=== PATIENT | female | born 1965 | race Caucasian/White ===

== ENCOUNTER → 2016-09-06 | Outpatient (CLI) | payer BC ==
[~2016-09-06] MED LIST: PERC5TAB6 PO
[2016-09-06 13:48] LABS: BASO % 0.3 % (0.0-1.0); EOS # 0.2 K/mm3 (0.0-0.50); EOS % 2.6 % (0.0-3.0); LARGE UNSTAINED CELL # 0.1 K/mm3 (0.0-0.4); LARGE UNSTAINED CELL % 1.6 % (0.0-4.0); LYMPH # 2.4 K/mm3 (1.5-4.5); LYMPH % 27.4 % (24.0-44.0); MEAN CORPUSCULAR HGB CONC 30.2 g/dl (32.0-36.5); MEAN CORPUSCULAR VOLUME 79.5 fl (80.0-96.0); MONO # 0.5 K/mm3 (0.0-0.8); MONO % 5.3 % (0.0-5.0); NEUTROPHILS # 5.5 K/mm3 (1.8-7.7); NEUTROPHILS % 62.9 % (36.0-66.0); PLATELET COUNT, AUTOMATED 402 k/mm3 (150-450); RED CELL DISTRIBUTION WIDTH 15.6 % (11.5-14.5); WHITE BLOOD COUNT 8.8 K/mm3 (4.0-10.0)
[2016-09-06 14:27] LABS: ALBUMIN 3.6 GM/DL (3.2-5.2); ALBUMIN/GLOBULIN RATIO 1.03 (1.00-1.93); ALKALINE PHOSPHATASE 89 U/L (45-117); ALT/SGPT 21 U/L (12-78); ANION GAP 6 MEQ/L (8-16); AST/SGOT 12 U/L (15-37); BILIRUBIN,TOTAL 0.3 MG/DL (0.2-1.0); BLOOD UREA NITROGEN 16 MG/DL (7-18); CALCIUM LEVEL 9.1 MG/DL (8.5-10.1); CARBON DIOXIDE LEVEL 28 MEQ/L (21-32); CHLORIDE LEVEL 106 MEQ/L (98-107); CHOLESTEROL LEVEL 159 MG/DL (<200); CREATININE FOR GFR 0.79 MG/DL (0.55-1.02); GLOMERULAR FILTRATION RATE > 60.0 (>51); GLUCOSE, FASTING 102 MG/DL (70-105); POTASSIUM SERUM 4.7 MEQ/L (3.5-5.1); SODIUM LEVEL 140 MEQ/L (136-145); TOTAL PROTEIN 7.1 GM/DL (6.4-8.2); TRIGLYCERIDES LEVEL 161 MG/DL (<150)
== END ==
LOC: M SMT 10:35
PROVIDERS: ATTEND Family Medicine
DX: E11.9 Type 2 diabetes mellitus without complications (principal); E78.2 Mixed hyperlipidemia

== ENCOUNTER → 2016-12-06 | Outpatient (CLI) | payer BC ==
[~2016-12-06] MED LIST changes: +PERC5TAB12 PO; -PERC5TAB6 PO
[2016-12-06 14:21] LABS: ANION GAP 9 MEQ/L (8-16); BLOOD UREA NITROGEN 13 MG/DL (7-18); CALCIUM LEVEL 9.7 MG/DL (8.5-10.1); CARBON DIOXIDE LEVEL 28 MEQ/L (21-32); CHLORIDE LEVEL 105 MEQ/L (98-107); CREATININE FOR GFR 0.84 MG/DL (0.55-1.02); GLOMERULAR FILTRATION RATE > 60.0 (>51); GLUCOSE, FASTING 104 MG/DL (70-105); POTASSIUM SERUM 4.8 MEQ/L (3.5-5.1); SODIUM LEVEL 142 MEQ/L (136-145)
== END ==
LOC: M SMT 10:28
PROVIDERS: ATTEND Physician Assistant
DX: E11.9 Type 2 diabetes mellitus without complications (principal)

== ENCOUNTER → 2017-05-21 | Outpatient (CLI) | payer BC ==
--- NOTE | 2017-05-21 19:39 | REP ---
Clinical: Postmenopausal bleeding . Technique: Transabdominal pelvic ultrasound followed by transvaginal examination for better evaluation of the endometrium and adnexa with color Doppler evaluation of the ovaries. Findings: Bladder is unremarkable and measures 5.4 x 5.6 x 7.3 cm . Heterogeneous myomatous uterus measures 13.5 x 6.7 x 6.8 cm . The endometrial complex measures 7.1 mm thickness. Fundal fibroid measures 4.3 x 3.9 x 4.1 cm and has a submucosal component; right anterior intramural/submucosal fibroid measures 2.3 x 2.3 x 1.4 cm; posterior intramural fibroid measures 2.4 x 3.4 x 2.1 cm; right posterior intramural fibroid measures 1.4 x 1.2 x 1.2 cm. Bilateral ovaries are normal in appearance. Right ovary measures 1.9 x 3.5 x 1.6 cm. Left ovary measures 2.4 x 1.5 x 1.8 cm. Small amount of free fluid in the pelvis nonspecific. . Impression: 1. Heterogeneous enlarged myomatous uterus. Signed by Del Shin MD 05/21/2017 04:30 P
== END ==
LOC: M RAD 16:07
PROVIDERS: ATTEND Internal Medicine
DX: Z00.01 Encounter for general adult medical examination with abnormal findings (principal); D25.9 Leiomyoma of uterus, unspecified

== ENCOUNTER → 2017-06-18 | Outpatient (REF) | payer BC | LOC: M LAB REF 13:23 | DX: N95.0 Postmenopausal bleeding (principal) | CPT/HCPCS: 88304 ==

== ENCOUNTER → 2017-06-30 | Outpatient (CLI) | payer BC ==
[2017-06-30 20:13] LABS: ALBUMIN 3.9 GM/DL (3.2-5.2); ALKALINE PHOSPHATASE 96 U/L (45-117); ALT/SGPT 24 U/L (12-78); ANION GAP 10 MEQ/L (8-16); AST/SGOT 17 U/L (7-37); BILIRUBIN,TOTAL 0.5 MG/DL (0.2-1.0); BLOOD UREA NITROGEN 17 MG/DL (7-18); CALCIUM LEVEL 9.3 MG/DL (8.5-10.1); CARBON DIOXIDE LEVEL 28 MEQ/L (21-32); CHLORIDE LEVEL 105 MEQ/L (98-107); CREATININE FOR GFR 0.91 MG/DL (0.55-1.30); GLOMERULAR FILTRATION RATE > 60.0 (>51); GLUCOSE, FASTING 103 MG/DL (70-100); POTASSIUM SERUM 4.8 MEQ/L (3.5-5.1); SODIUM LEVEL 143 MEQ/L (136-145); TOTAL PROTEIN 7.8 GM/DL (6.4-8.2)
[2017-06-30 20:20] LABS: ESTIMATED AVERAGE GLUCOSE 131 MG/DL (60-110); HEMOGLOBIN A1c 6.2 %
== END ==
LOC: M SMT 11:30
DX: E11.9 Type 2 diabetes mellitus without complications (principal)
CPT/HCPCS: 80053

== ENCOUNTER → 2018-03-30 | Outpatient (CLI) | payer BC ==
[2018-03-30 17:21] LABS: BASO % 0.4 % (0.0-1.0); EOS # 0.3 10^3/uL (0.0-0.50); EOS % 3.3 % (0.0-3.0); HEMATOCRIT 42.5 % (36.0-47.0); HEMOGLOBIN 13.3 g/dl (12.0-15.5); IMMATURE GRANULOCYTE % 0.3 % (0-3.0); LYMPH # 2.8 10^3/uL (1.5-4.5); LYMPH % 30.9 % (24.0-44.0); MEAN CORPUSCULAR HEMOGLOBIN 29.4 pg (27.0-33.0); MEAN CORPUSCULAR HGB CONC 31.3 g/dl (32.0-36.5); MEAN CORPUSCULAR VOLUME 93.8 fl (80.0-96.0); MONO # 0.6 10^3/uL (0.0-0.8); MONO % 7.1 % (0.0-5.0); NEUTROPHILS # 5.2 10^3/uL (1.8-7.7); PLATELET COUNT, AUTOMATED 361 10^3/uL (150-450); RED BLOOD COUNT 4.53 10^6/uL (4.00-5.40); RED CELL DISTRIBUTION WIDTH 13.3 % (11.5-14.5); WHITE BLOOD COUNT 8.9 10^3/uL (4.0-10.0)
[2018-03-30 17:34] LABS: ALBUMIN 3.9 GM/DL (3.2-5.2); ALBUMIN/GLOBULIN RATIO 1.08 (1.00-1.93); ALKALINE PHOSPHATASE 106 U/L (45-117); ALT/SGPT 27 U/L (12-78); ANION GAP 6 MEQ/L (8-16); AST/SGOT 13 U/L (7-37); BILIRUBIN,TOTAL 0.4 MG/DL (0.2-1.0); BLOOD UREA NITROGEN 15 MG/DL (7-18); CALCIUM LEVEL 9.7 MG/DL (8.5-10.1); CARBON DIOXIDE LEVEL 30 MEQ/L (21-32); CHLORIDE LEVEL 104 MEQ/L (98-107); GLOMERULAR FILTRATION RATE > 60.0 (>51); GLUCOSE, FASTING 93 MG/DL (70-100); POTASSIUM SERUM 4.4 MEQ/L (3.5-5.1); SODIUM LEVEL 140 MEQ/L (136-145); TOTAL PROTEIN 7.5 GM/DL (6.4-8.2)
[2018-03-30 17:49] LABS: ESTIMATED AVERAGE GLUCOSE 128 MG/DL (60-110); HEMOGLOBIN A1c 6.1 %
== END ==
LOC: M SMT 10:59
DX: E11.9 Type 2 diabetes mellitus without complications (principal)
CPT/HCPCS: 80053

== ENCOUNTER → 2018-07-07 | Outpatient (CLI) | payer BC ==
[2018-07-07 14:56] LABS: ALBUMIN 4.1 GM/DL (3.2-5.2); BILIRUBIN,TOTAL 0.5 MG/DL (0.2-1.0); CALCIUM LEVEL 9.5 MG/DL (8.5-10.1); CREATININE FOR GFR 1.08 MG/DL (0.55-1.30); GLOMERULAR FILTRATION RATE 56.5 (>51); HEMOGLOBIN A1c 6.3 %; POTASSIUM SERUM 4.4 MEQ/L (3.5-5.1); TOTAL PROTEIN 7.7 GM/DL (6.4-8.2)
== END ==
LOC: M SMT 08:59
PROVIDERS: ATTEND Family Medicine
DX: I10 Essential (primary) hypertension (principal)

== ENCOUNTER 2018-07-22 08:37 | Day surgery (SDC) | payer BC ==
[~2018-07-22] VITALS: Ht 162.6 cm; Wt 111.6 kg
[~2018-07-22 08:37] MED LIST changes: +NS 1,000 ML IV ONE
[2018-07-22] MEDS ORDERED: PROPOFOL 200 MG/20 ML VIAL As Ordered ONE (09:29)
[2018-07-22] MEDS ORDERED: LIDOCAINE 2% INJ 100 MG/5 ML SDV (FOR ANES.) As Ordered ONE (09:30)
[2018-07-22] MEDS ORDERED: LISI10TA4 PO (10:20)
[2018-07-22] MEDS ORDERED: ATOR40TA75 PO (10:20)
[2018-07-22] MEDS ORDERED: BISO5TAB2 PO (10:20)
[2018-07-22] MEDS ORDERED: DEBL1TAB PO (10:20)
[2018-07-22] MEDS ORDERED: METF10004 PO (10:20)
[2018-07-22] MEDS ORDERED: AMLO-140 PO (10:20)
[2018-07-22] MEDS ORDERED: TRUL10IN SC (10:20)
[2018-07-22] MEDS ORDERED: ASPI1TAB PO (10:20)
--- NOTE | 2018-07-22 10:58 | ROOR ---
Patient Name: Raquel Botello Procedure Date: 07/22/2018 10:37 AM Date of : 1965 Age: 53 Room: [facility] Gender: Female Note Status: Finalized Procedure: Colonoscopy Indications: Screening for colorectal malignant neoplasm Providers: Jose Simon DO Referring MD: Araceli BARAJAS DO Requesting Provider: Medicines: Propofol per Anesthesia Complications: No immediate complications. Procedure: Pre-Anesthesia Assessment: - Prior to the procedure, a History and Physical was performed, and patient medications and allergies were reviewed. The patient is competent. The risks and benefits of the procedure and the sedation options and risks were discussed with the patient. All questions were answered and informed consent was obtained. Patient identification and proposed procedure were verified by the physician, the nurse, the anesthesiologist and the remediation technician in the endoscopy suite. Mental Status Examination: alert and oriented. Airway Examination: normal oropharyngeal airway and neck mobility. Respiratory Examination: clear to auscultation. CV Examination: normal. Prophylactic Antibiotics: The patient does not require prophylactic antibiotics. Prior Anticoagulants: The patient has taken no previous anticoagulant or antiplatelet agents. ASA Grade Assessment: II - A patient with mild systemic disease. After reviewing the risks and benefits, the patient was deemed in satisfactory condition to undergo the procedure. The anesthesia plan was to use monitored anesthesia care (MAC). Immediately prior to administration of medications, the patient was re-assessed for adequacy to receive sedatives. The heart rate, respiratory rate, oxygen saturations, blood pressure, adequacy of pulmonary ventilation, and response to care were monitored throughout the procedure. The physical status of the patient was re-assessed after the procedure. The Colonoscope was introduced through the anus and advanced to the cecum, identified by appendiceal orifice and ileocecal valve. The colonoscopy was performed without difficulty. The patient tolerated the procedure well. Findings: The perianal exam findings include non-thrombosed internal hemorrhoids and internal hemorrhoids (Grade I). A single small-mouthed diverticulum was found in the sigmoid colon. The exam was otherwise without abnormality on direct and retroflexion views. Impression: - Non-thrombosed internal hemorrhoids and internal hemorrhoids (Grade I) found on perianal exam. - Diverticulosis in the sigmoid colon. - The examination was otherwise normal on direct and retroflexion views. - No specimens collected. Recommendation: - Patient has a contact number available for emergencies. The signs and symptoms of potential delayed complications were discussed with the patient. Return to normal activities tomorrow. Written discharge instructions were provided to the patient. - Repeat colonoscopy in 10 years for screening purposes. - Return to my office PRN. Jose Simon DO 07/22/2018 10:58:20 AM This report has been signed electronically. Number of Addenda: 0 Note Initiated On: 07/22/2018 10:37 AM Estimated Blood Loss: Estimated blood loss was minimal.
[2018-07-22 11:25] VITALS: BP 141/87
== END 2018-07-22 11:37 | disposition home or self-care (01) ==
LOC: M OPP 08:37
PROVIDERS: ATTEND Surgery
DX: Z12.11 Encounter for screening for malignant neoplasm of colon (principal); K64.0 First degree hemorrhoids; K57.30 Diverticulosis of large intestine without perforation or abscess without bleeding; Z87.891 Personal history of nicotine dependence; Z79.899 Other long term (current) drug therapy

== ENCOUNTER → 2018-09-24 | Outpatient (REF) | payer BC ==
[~2018-09-24] MED LIST changes: +AMLO-140 PO; +ASPI81TA26 PO; +ATOR40TA75 PO; +BISO5TAB2 PO; +DEBL1TAB PO; +LISI10TA4 PO; +METF10004 PO; -NS 1,000 ML IV ONE; +TRUL10IN SC
[2018-09-29 14:13] LABS: HPV HYBRID CAPTURE II Negative (Negative)
== END ==
LOC: M LAB REF 11:00
PROVIDERS: ATTEND Specialist
DX: Z12.4 Encounter for screening for malignant neoplasm of cervix (principal)
CPT/HCPCS: 87624; G0123

== ENCOUNTER → 2018-09-24 | Outpatient (CLI) | payer BC | LOC: M SMT 11:42 | PROVIDERS: ATTEND Specialist | DX: Z13.79 Encounter for other screening for genetic and chromosomal anomalies (principal); Z53.9 Procedure and treatment not carried out, unspecified reason ==

== ENCOUNTER → 2018-09-24 | Outpatient (CLI) | payer BC ==
[2018-09-24 10:42] LABS: BASO % 0.4 % (0.0-1.0); EOS # 0.2 10^3/uL (0.0-0.50); EOS % 1.7 % (0.0-3.0); HEMATOCRIT 41.9 % (36.0-47.0); HEMOGLOBIN 13.7 g/dl (12.0-15.5); LYMPH # 3.1 10^3/uL (1.5-4.5); MEAN CORPUSCULAR HEMOGLOBIN 29.7 pg (27.0-33.0); MEAN CORPUSCULAR HGB CONC 32.7 g/dl (32.0-36.5); MEAN CORPUSCULAR VOLUME 90.9 fl (80.0-96.0); MONO # 0.8 10^3/uL (0.0-0.8); MONO % 7.5 % (0.0-5.0); NEUTROPHILS # 6.2 10^3/uL (1.8-7.7); NEUTROPHILS % 60.1 % (36.0-66.0); PLATELET COUNT, AUTOMATED 315 10^3/uL (150-450); RED BLOOD COUNT 4.61 10^6/uL (4.00-5.40); WHITE BLOOD COUNT 10.3 10^3/uL (4.0-10.0)
[2018-09-24 11:04] LABS: ALBUMIN 3.9 GM/DL (3.2-5.2); ALT/SGPT 37 U/L (12-78); BILIRUBIN,TOTAL 0.3 MG/DL (0.2-1.0); BLOOD UREA NITROGEN 20 MG/DL (7-18); CALCIUM LEVEL 9.6 MG/DL (8.5-10.1); CARBON DIOXIDE LEVEL 27 MEQ/L (21-32); CHLORIDE LEVEL 106 MEQ/L (98-107); CHOLESTEROL LEVEL 145 MG/DL (<200); CHOLESTEROL RISK RATIO 3.295 (<5); CREATININE FOR GFR 0.84 MG/DL (0.55-1.30); GLOMERULAR FILTRATION RATE > 60.0 (>51); GLUCOSE, FASTING 99 MG/DL (70-100); HDL CHOLESTEROL 44 MG/DL (>40); LDL CHOLESTEROL 61 MG/DL (<100); NON-HDL-C 101 MG/DL; POTASSIUM SERUM 3.9 MEQ/L (3.5-5.1); SODIUM LEVEL 140 MEQ/L (136-145); TOTAL PROTEIN 7.4 GM/DL (6.4-8.2); TRIGLYCERIDES LEVEL 202 MG/DL (<150)
[2018-09-24 11:10] LABS: HEMOGLOBIN A1c 6.2 %
[2018-09-24 11:37] LABS: MALB URINE SIEMENS 37.8 MG/L; MAU/CREAT RATIO 21.9 MCG/MG (0.0-30.0)
== END ==
LOC: M SMT 08:32
PROVIDERS: ATTEND Family Medicine
DX: E11.9 Type 2 diabetes mellitus without complications (principal); E78.2 Mixed hyperlipidemia

== ENCOUNTER → 2019-01-07 | Outpatient (CLI) | payer BC ==
[2019-01-07 15:12] LABS: BLOOD UREA NITROGEN 16 MG/DL (7-18); CALCIUM LEVEL 9.4 MG/DL (8.5-10.1); CARBON DIOXIDE LEVEL 25 MEQ/L (21-32); CHLORIDE LEVEL 108 MEQ/L (98-107); CREATININE FOR GFR 0.89 MG/DL (0.55-1.30); GLOMERULAR FILTRATION RATE > 60.0 (>51); GLUCOSE, FASTING 97 MG/DL (70-100); POTASSIUM SERUM 4.3 MEQ/L (3.5-5.1); SODIUM LEVEL 143 MEQ/L (136-145)
[2019-01-07 15:44] LABS: HEMOGLOBIN A1c 6.1 %
== END ==
LOC: M SMT 09:27
PROVIDERS: ATTEND Physician Assistant
DX: Z00.01 Encounter for general adult medical examination with abnormal findings (principal); E11.9 Type 2 diabetes mellitus without complications

== ENCOUNTER 2019-03-24 13:58 | Day surgery (SDC) | payer BC ==
[~2019-03-24] VITALS: Ht 162.6 cm; Wt 118.8 kg
[~2019-03-24 13:58] MED LIST changes: +LR 1,000 ML IV ONE
[2019-03-24] MEDS ORDERED: MIDAZOLAM INJ 2 MG/2 ML VIAL (J2250) As Ordered ONE (14:34)
[2019-03-24] MEDS ORDERED: fentaNYL 100 MCG/2 ML INJECTION (J3010) As Ordered ONE (14:34)
[2019-03-24 14:35] LABS: HEMATOCRIT 44.3 % (36.0-47.0); HEMOGLOBIN 14.8 g/dl (12.0-15.5); MEAN CORPUSCULAR HGB CONC 33.4 g/dl (32.0-36.5); MEAN CORPUSCULAR VOLUME 92.7 fl (80.0-96.0); PLATELET COUNT, AUTOMATED 339 10^3/uL (150-450); RED BLOOD COUNT 4.78 10^6/uL (4.00-5.40); WHITE BLOOD COUNT 9.1 10^3/uL (4.0-10.0)
[2019-03-24] MEDS ORDERED: PROPOFOL 200 MG/20 ML VIAL As Ordered ONE ×2 (14:35→16:51)
[2019-03-24] MEDS ORDERED: LIDOCAINE 2% INJ 100 MG/5 ML SDV (FOR ANES.) As Ordered ONE (14:35)
[2019-03-24] MEDS ORDERED: dexameTHASONE 4 MG/ML 1ML VIAL (J1100) As Ordered ONE (14:35)
[2019-03-24] MEDS ORDERED: ONDANSETRON 4MG/2ML VIAL (J2405) As Ordered ONE (14:35)
[2019-03-24] MEDS ORDERED: PHENYLephrine HCL 500 MCG/5 ML (100MCG/ML) SYRINGE (J2370) As Ordered ONE (14:56)
[2019-03-24] MEDS ORDERED: BUPIVACAINE HCL 0.25% 30 ML VIAL As Ordered ONE (15:51)
[2019-03-24] MEDS ORDERED: ESTROGENS VAGINAL CREAM 30GM As Ordered ONE (15:51)
--- NOTE | 2019-03-24 16:32 | ECGEPIP ---
[facility] Test Date: 2019-03-24 Pat Name: LILIAM TREJO Department: Room: - Gender: Female It Service Continuity Supervisor: [facility] : 1965 Requested By: Freddie Diop Order Number: [id number] Reading MD: Erick Regalado Measurements Intervals [place] Rate: 63 P: 36 AR: 214 QRS: 33 QRSD: 83 T: 62 QT: 425 QTc: 437 Interpretive Statements SINUS RHYTHM WITH FIRST DEGREE AV BLOCK Electronically Signed on 03-24-2019 16:32:19 EDT by Erick Regalado
[2019-03-24] MEDS ORDERED: CHLOROPROCAINE PRES. FREE 3% INJ 20 ML VIAL (J2400) As Ordered ONE (16:34)
[2019-03-24] MEDS ORDERED: fentaNYL 100 MCG/2 ML INJECTION (J3010) IV PRN (17:45)
[2019-03-24] MEDS ORDERED: PERCOCET 5MG/325MG TAB PO PRN (17:45)
[2019-03-24] MEDS ORDERED: METOCLOPRAMIDE INJ 10MG/2ML VIAL (J2765) IV PRN (17:45)
[2019-03-24] MEDS ORDERED: LR 1,000 ML IV SCH ×2 (17:45)
[2019-03-24] MEDS ORDERED: PERCOCET 5MG/325MG TAB PO ONE (17:45)
[2019-03-24] MEDS ORDERED: ONDANSETRON 4MG/2ML VIAL (J2405) IV PRN (17:45)
[2019-03-24 19:20] VITALS: BP 143/74
--- NOTE | 2019-03-25 08:07 | RO ---
DATE OF PROCEDURE: 03/24/2019 PREPROCEDURE DIAGNOSIS: Numerous sebaceous cysts of the vulva. POSTPROCEDURE DIAGNOSIS: Numerous sebaceous cysts of the vulva. PROCEDURE: Extensive excision of sebaceous cysts of the vulva. SURGEON: Dr. Bennett Saucedo [employer]NA[employer]ETING: ANESTHESIA: Spinal. ESTIMATED BLOOD LOSS: 50 mL. FINDINGS: Numerous extensive sebaceous cysts involving the labia majora bilaterally, otherwise normal labia minora, normal vagina. DESCRIPTION OF PROCEDURE: The patient was taken to the operating room where spinal anesthesia was induced. She was prepped and draped in sterile fashion in the dorsal lithotomy position. The bladder was emptied with a catheter. Scalpel #15 blade was used to excise sebaceous cysts bilaterally. I estimate that approximately 100 cysts were excised. The patient was given a total of 10 mL of 0.25% Marcaine solution injected bilaterally to the base of the labia. Good hemostasis was noted. At the end of the procedure, there were still some sebaceous cysts left, however, the situation was much improved. It was made clear to the patient ahead of time that it would not be possible to remove all the cysts at present. Sponge and instrument counts were correct.
== END 2019-03-24 19:25 | disposition home or self-care (01) ==
LOC: M SDC 13:58
PROVIDERS: ATTEND Specialist
DX: N90.7 Vulvar cyst (principal); I44.0 Atrioventricular block, first degree; I10 Essential (primary) hypertension; E11.9 Type 2 diabetes mellitus without complications; E66.01 Morbid (severe) obesity due to excess calories; G47.33 Obstructive sleep apnea (adult) (pediatric); F17.210 Nicotine dependence, cigarettes, uncomplicated; Z79.84 Long term (current) use of oral hypoglycemic drugs; Z79.899 Other long term (current) drug therapy
CPT/HCPCS: 11420; 36415; 85027; 88304; 93005; J1100; J2250; J2400; J2405; J3010

== ENCOUNTER → 2019-04-14 | Outpatient (CLI) | payer BC ==
[~2019-04-14] MED LIST changes: -LR 1,000 ML IV ONE
[2019-04-14 14:15] LABS: BASO % 0.4 % (0.0-1.0); EOS # 0.1 10^3/uL (0.0-0.5); EOS % 1.3 % (0.0-3.0); HEMATOCRIT 43.7 % (36.0-47.0); HEMOGLOBIN 13.6 g/dl (12.0-15.5); LYMPH # 2.8 10^3/uL (1.5-5.0); LYMPH % 27.2 % (24.0-44.0); MEAN CORPUSCULAR HEMOGLOBIN 29.4 pg (27.0-33.0); MEAN CORPUSCULAR HGB CONC 31.1 g/dl (32.0-36.5); MEAN CORPUSCULAR VOLUME 94.4 fl (80.0-96.0); MONO # 0.7 10^3/uL (0.0-0.8); NEUTROPHILS # 6.5 10^3/uL (1.5-8.5); NEUTROPHILS % 63.7 % (36.0-66.0); PLATELET COUNT, AUTOMATED 298 10^3/uL (150-450); RED BLOOD COUNT 4.63 10^6/uL (4.00-5.40); WHITE BLOOD COUNT 10.2 10^3/uL (4.0-10.0)
[2019-04-14 14:17] LABS: ALBUMIN 3.8 GM/DL (3.2-5.2); BILIRUBIN,TOTAL 0.6 MG/DL (0.2-1.0); CALCIUM LEVEL 9.3 MG/DL (8.5-10.1); CREATININE FOR GFR 1.08 MG/DL (0.55-1.30); GLOMERULAR FILTRATION RATE 56.3 (>51); POTASSIUM SERUM 4.5 MEQ/L (3.5-5.1); TOTAL PROTEIN 7.4 GM/DL (6.4-8.2)
[2019-04-14 14:38] LABS: HEMOGLOBIN A1c 6.3 %
== END ==
LOC: M SMT 09:44
PROVIDERS: ATTEND Family Medicine
DX: I10 Essential (primary) hypertension (principal)

== ENCOUNTER → 2020-03-30 | Outpatient (REF) | payer BC ==
[~2020-03-30] MED LIST changes: +AMLO1TAB25 PO; +MELO15TA28 PO; +TRUL0.5I SQ
== END ==
LOC: M LAB REF 16:54
PROVIDERS: ATTEND Physician Assistant
DX: Z13.29 Encounter for screening for other suspected endocrine disorder (principal)

== ENCOUNTER → 2020-04-02 | Outpatient (CLI) | payer BC | LOC: M LABSMTC 11:21 | PROVIDERS: ATTEND Anesthesiology | DX: Z01.812 Encounter for preprocedural laboratory examination (principal); Z20.828 Contact with and (suspected) exposure to other viral communicable diseases | CPT/HCPCS: C9803; U0003 ==

== ENCOUNTER 2020-04-07 10:05 | Day surgery (SDC) | payer BC ==
[~2020-04-07] VITALS: Ht 162.6 cm; Wt 121.0 kg
[~2020-04-07 10:05] MED LIST changes: -AMLO1TAB25 PO; -MELO15TA28 PO; -TRUL0.5I SQ
[2020-04-07] MEDS ORDERED: ceFAZolin SOD 2 GM in IV 1 EA IV ONE (11:45)
[2020-04-07] MEDS ORDERED: MELO15TA28 PO (11:47)
[2020-04-07] MEDS ORDERED: TRUL0.5I SQ (11:47)
[2020-04-07] MEDS ORDERED: AMLO1TAB25 PO (11:47)
[2020-04-07] MEDS ORDERED: MIDAZOLAM INJ 2MG/2ML VIAL (J2250 PER 1MG) As Ordered ONE (15:22)
[2020-04-07] MEDS ORDERED: propofoL 200 MG/20 ML VIAL As Ordered ONE ×2 (15:22→17:34)
[2020-04-07] MEDS ORDERED: fentaNYL 100 MCG/2 ML INJECTION (J3010) As Ordered ONE (15:22)
[2020-04-07] MEDS ORDERED: LIDOCAINE 2% 100MG/5ML SDV (FOR ANES.) As Ordered ONE (15:22)
[2020-04-07] MEDS ORDERED: ROPIvacaine 0.5% 30ML INJECTION (J2795 PER 1MG) As Ordered ONE (16:51)
[2020-04-07] MEDS ORDERED: ONDANSETRON 4MG/2ML VIAL As Ordered ONE (17:34)
[2020-04-07] MEDS ORDERED: CHLOROPROCAINE PRES. FREE 2% 20ML VIAL As Ordered ONE (17:34)
[2020-04-07] MEDS ORDERED: KETOROLAC 60MG 2ML VIAL As Ordered ONE (17:34)
[2020-04-07] MEDS ORDERED: oxyCODONE 5MG TAB PO PRN (18:15)
[2020-04-07] MEDS ORDERED: LR 1,000 ML IV SCH ×2 (18:15)
[2020-04-07] MEDS ORDERED: ACETAMINOPHEN TAB 650MG DOSE (2X325MG) PO PRN (18:15)
[2020-04-07] MEDS ORDERED: fentaNYL 100 MCG/2 ML INJECTION (J3010) IV PRN (18:15)
[2020-04-07] MEDS ORDERED: MORPHINE 2 MG/ML 1ML VIAL (J2270) IV PRN (18:15)
[2020-04-07] MEDS ORDERED: ONDANSETRON 4MG/2ML VIAL IV PRN ×2 (18:15)
[2020-04-07] MEDS ORDERED: PERCOCET 5MG/325MG TAB PO PRN (18:15)
[2020-04-07 20:15] VITALS: BP 156/85
--- NOTE | 2020-04-11 11:16 | RO ---
DATE OF OPERATION: 04/07/2020 PREOPERATIVE DIAGNOSIS: Right knee osteoarthritis and medial meniscus tear. POSTOPERATIVE DIAGNOSIS: Right knee osteoarthritis and medial meniscus tear. PLANNED PROCEDURE: Right knee arthroscopy, debridement and partial medial meniscectomy. PROCEDURE PERFORMED: Right knee arthroscopy, debridement and partial medial meniscectomy. SURGEON: Micah Diego MD REEL SYSTEM OPERATOR: ANESTHESIA: Spinal OPERATIVE PREAMBLE: This is a 55-year-old female who has a small medial meniscal tear as well as medial compartment osteoarthritis. We talked about the risks, benefits and surgical management of arthroscopy with possible partial medial meniscectomy and debridement. She wished to have this done and signed the consent for surgery. I marked the right lower extremity and proceeded to surgery. OPERATIVE REPORT: The patient was brought to the operating theater. She was administered general anesthetic. All bony prominences were padded. Stress positioner used to the patients right side. Tourniquet was applied. The limb was prepped and draped in the usual sterile fashion allowing over 3 minutes for prep solution drying time prior to draping. A time out was performed to confirm the site, side, patient, and surgery. The patient received 2 gm of IV Ancef prior to the start of the case. The limb was elevated and tourniquet inflated to 250 mmHg and then eventually to 300 mmHg. Standard anterolateral and anteromedial arthroscopy portals were made. There is a large plica medially. This was debrided. There was a moderate amount of synovitis in the anterior compartment retropatellar aspect of the knee that was debrided again. Medial and lateral gutters were entered and no loose bodies. Patellofemoral cartilage on the patella, there is grade 1 softening on the trochlea, there is grade 2 and grade 3 changes. The medial compartment there was grade 3-4 changes primarily in the tibial plateau as well as grade 2-3 changes in femoral side. Medial meniscus had slight wave to it, slight inner surface fraying that was gently debrided using basket forceps and shaving instruments. Ligamentum mucosum was debrided away. There was a small amount of wavy PCL type tissue entering slightly into the lateral aspect of the medial compartment so I gently debrided this away. ACL and PCL appeared stable. Lateral compartment was entered. Cartilage appeared relatively well preserved on both sides and lateral meniscus stable as well as normal appearance of the popliteal hiatus and tendon. Scope was withdrawn. There was a moderate amount of bleeding and oozing after the tourniquet was taken down so I reinforced this with Adaptic, 4 x 8 gauze, Steri-Strips overlying the incision as well as ABD padding and over-wrapped with two sterile bandages. The patient was transferred off the operating room table and taken to the postanesthetic care unit in stable condition. All sponge, needle, and instrument counts were correct. Estimated blood loss 50 mL. No complications. Plan for the patient is to be weightbearing as tolerated, range of motion as tolerated. Follow up in the office in two weeks time and discharged home according to day surgery criteria. Prescription will be sent to her pharmacy electronically. TIMOTYH
== END 2020-04-07 20:15 | disposition home or self-care (01) ==
LOC: M SDC 10:05
PROVIDERS: ATTEND Orthopaedic Surgery Sports Medicine
DX: M17.11 Unilateral primary osteoarthritis, right knee (principal); M23.231 Derangement of other medial meniscus due to old tear or injury, right knee; I10 Essential (primary) hypertension; E11.9 Type 2 diabetes mellitus without complications; E78.49 Other hyperlipidemia; Z79.84 Long term (current) use of oral hypoglycemic drugs; Z79.899 Other long term (current) drug therapy; G47.33 Obstructive sleep apnea (adult) (pediatric); K21.9 Gastro-esophageal reflux disease without esophagitis
CPT/HCPCS: 29881; 36415; 85730; J0690; J1885; J2250; J2400; J2405; J2795; J3010

== ENCOUNTER → 2021-07-05 | Outpatient (CLI) | payer BC ==
[~2021-07-05] MED LIST changes: +AMLO1TAB25 PO; +BISO1TAB18 PO; -BISO5TAB2 PO; +LISI10TA22 PO; -LISI10TA4 PO; +MELO15TA28 PO; +TRUL0.5I SQ
== END ==
LOC: M SOG 10:07
PROVIDERS: ATTEND Orthopaedic Surgery Sports Medicine
DX: M17.11 Unilateral primary osteoarthritis, right knee (principal)

== ENCOUNTER → 2022-03-14 | Outpatient (CLI) | payer BC | LOC: M SOG 08:05 | PROVIDERS: ATTEND Orthopaedic Surgery Adult Reconstructive Orthopaedic Surgery | DX: M17.0 Bilateral primary osteoarthritis of knee (principal) ==

== ENCOUNTER → 2022-10-04 | Outpatient (CLI) | payer BC | LOC: M SOG 08:06 | PROVIDERS: ATTEND Orthopaedic Surgery | DX: M25.561 Pain in right knee (principal); M25.562 Pain in left knee ==

== ENCOUNTER → 2022-11-25 | Outpatient (CLI) | payer BC | LOC: M SOG 08:14 | PROVIDERS: ATTEND Orthopaedic Surgery | DX: M25.562 Pain in left knee (principal); M25.561 Pain in right knee ==

== ENCOUNTER → 2023-01-01 | Outpatient (CLI) | payer BC | LOC: M SOG 15:52 | PROVIDERS: ATTEND Orthopaedic Surgery | DX: M17.0 Bilateral primary osteoarthritis of knee (principal); M25.561 Pain in right knee; M25.562 Pain in left knee ==

== ENCOUNTER → 2023-07-04 | Outpatient (CLI) | payer BC | LOC: M SOG 07:56 | PROVIDERS: ATTEND Orthopaedic Surgery | DX: M17.0 Bilateral primary osteoarthritis of knee (principal) ==

== ENCOUNTER → 2025-01-24 | Outpatient (CLI) | payer BC | LOC: M SOG 07:08 | PROVIDERS: ATTEND Physician Assistant | DX: M17.0 Bilateral primary osteoarthritis of knee (principal) ==

== ENCOUNTER → 2025-04-01 | Outpatient (CLI) | payer BC | LOC: M SOG 07:18 | PROVIDERS: ATTEND Physician Assistant | DX: M17.0 Bilateral primary osteoarthritis of knee (principal) ==